=== PATIENT | female | born 1955 | race Caucasian/White ===

== ENCOUNTER → 2024-05-22 08:35 | Outpatient (REF) | payer MEDICARE, OTHER, SELFPAY | LOC: WDC 08:35 | PROVIDERS: ATTENDING PHYSICIAN Physician Assistant Medical | DX: Z12.31 Encounter for screening mammogram for malignant neoplasm of breast (principal) | CPT/HCPCS: 77063; 77067 ==

== ENCOUNTER → 2025-05-14 07:31 | Outpatient (REF) | payer MEDICARE, OTHER, SELFPAY ==
[2025-05-14 09:04] LABS: Hematocrit 38.4 % (37.0-47.0); Hemoglobin 12.7 g/dL (12.0-16.0); Mean Corp Hgb Conc. 33.1 g/dL (33.0-37.0); Mean Corpuscular Volume 95.8 fL (81.0-99.0); Nucleated Red Blood Cells % 0 %; Platelet Count 213 10^3/uL (130-400); Red Cell Dist. Width 12.0 % (11.5-14.5)
[2025-05-14 09:38] LABS: Blood Urea Nitrogen 19 mg/dl (7-17); Glucose 123 mg/dl (70-99); eGFR > 60.00
[2025-05-14 09:39] LABS: ALT (SGPT) 38 U/L (0-35); AST (SGOT) 27 U/L (14-36); Albumin 4.5 g/dl (3.5-5.0); Alkaline Phosphatase 55 U/L (38-126); Calcium 9.8 mg/dl (8.4-10.2); Carbon Dioxide 28 mmol/L (22-30); Chloride 101 mmol/L (98-107); HDL Cholesterol 70 mg/dl; LDL Cholesterol, Calculated 140 mg/dl; Potassium 4.8 mmol/L (3.5-5.1); Sodium 139 mmol/L (135-145); Total Protein 7.4 g/dl (6.3-8.2); Very Low Density Lipoprotein 27 mg/dl (0-30)
[2025-05-14 10:35] LABS: Glycohemoglobin (HgbA1c) 6.0 % (4.0-5.6)
[2025-05-14 18:57] LABS: Hepatitis C Antibody Negative (Negative)
== END ==
LOC: REG 07:31
PROVIDERS: ATTENDING PHYSICIAN Family Medicine
DX: E78.2 Mixed hyperlipidemia (principal); I10 Essential (primary) hypertension; R73.09 Other abnormal glucose; R53.83 Other fatigue; Z79.899 Other long term (current) drug therapy
CPT/HCPCS: 36415; 80053; 80061; 83036; 84443; 85025; 86803

== ENCOUNTER → 2025-06-06 18:10 | Outpatient (REF) | payer MEDICARE, OTHER, SELFPAY | LOC: WDC 18:10 | PROVIDERS: ATTENDING PHYSICIAN Family Medicine | DX: Z12.31 Encounter for screening mammogram for malignant neoplasm of breast (principal) | CPT/HCPCS: 77063; 77067 ==